=== PATIENT | female | born 1985 | race Two or more races ===

== ENCOUNTER 2018-02-06 14:51 | Inpatient (IN) | payer SELFPAY ==
[2018-02-06] MEDS ORDERED: MISOPROSTOL 200 MCG TAB PR (18:00)
[2018-02-06] MEDS ORDERED: LIDOCAINE 1% (MPF) 30 ML INJ INJ (18:00)
[2018-02-06] MEDS ORDERED: METHYLERGONOVINE 0.2 MG INJ IM (18:00)
[2018-02-06] MEDS ORDERED: OXYTOCIN 30 UNITS/LR 500 ML IV ×2 (18:00)
[2018-02-06] MEDS ORDERED: CARBOPROST 250 MCG INJ IM (18:00)
[2018-02-06] MEDS ORDERED: BUTORPHANOL 2 MG INJ IV (18:00)
[2018-02-06] MEDS ORDERED: IBUPROFEN 600 MG TAB PO (18:00)
[2018-02-06 19:58] LABS: ADD MAN DIFF? NO
[2018-02-06] MEDS: LACTATED RINGER'S 1,000 ML IV* (19:59)
[2018-02-06 20:01] LABS: WHITE BLOOD COUNT 9.4 10^3/ul (4.8-10.8)
[2018-02-06 20:01] LABS: BASOPHILS % 0.1 % (0.0-2.0); EOSINOPHILS % 0.2 % (0.0-7.0); HEMATOCRIT 38.1 % (37.0-47.0); HEMOGLOBIN 12.7 g/dl (12.0-16.0); LYMPHOCYTES # 1.4 10^3/ul (0.8-2.9); LYMPHOCYTES % 15.1 % (15.0-51.0); MEAN CORPUSCULAR HEMOGLOBIN 31.1 pg (29.0-33.0); MEAN CORPUSCULAR HGB CONC 33.3 g/dl (32.0-37.0); MEAN CORPUSCULAR VOLUME 93.4 fl (82.0-101.0); MEAN PLATELET VOLUME 10.3 fl (7.4-10.4); MONOCYTE # 0.7 10^3/ul (0.3-0.9); NEUTROPHIL # 7.3 10^3/ul (1.6-7.5); NEUTROPHILS % 77.2 % (39.0-77.0); PLATELET COUNT 160 10^3/UL (140-415); RED BLOOD COUNT 4.08 10^6/ul (4.20-5.40); RED CELL DISTRIBUTION WIDTH 13.2 % (11.5-14.5)
[2018-02-06] MEDS: AMPICILLIN 2 GM/NS (PMX) 100 ML IV (20:18)
[2018-02-06 20:19] LABS: PT RATIO 1.1
[2018-02-06 20:20] LABS: PARTIAL THROMBOPLASTIN TIME 26.4 Sec (25.0-35.0)
[2018-02-06 20:58] LABS: PROTIME 13.4 Sec (11.9-14.9)
[2018-02-06 20:59] LABS: INR 1.01
[2018-02-06] MEDS: LACTATED RINGER'S 1,000 ML IV (21:06)
[2018-02-06] MEDS ORDERED: FENTAnyl 2MCG/ML-ROPIV 0.2% 100 ML (21:07)
[2018-02-06 21:35] LABS: HEPATITIS B SURFACE ANTIGEN NEGATIVE (NEGATIVE)
[2018-02-06] MEDS ORDERED: ONDANSETRON 4 MG INJ IV (22:00)
[2018-02-06] MEDS ORDERED: DIPHENHYDRAMINE 50 MG INJ IV (22:00)
[2018-02-06] MEDS ORDERED: NALOXONE (0.4 MG/ML) INJ IV (22:00)
[2018-02-06] MEDS ORDERED: AMPICILLIN 1 GM/NS (PMX) 50 ML IV (22:00)
[2018-02-07] MEDS: DEXTROSE 5%-LR 1,000 ML IV (00:03)
[2018-02-07] MEDS: AMPICILLIN 1 GM/NS (PMX) 50 ML IV ×3 (00:03→07:11)
[2018-02-07] MEDS ORDERED: OXYTOCIN 30 UNITS/LR 500 ML IV ×2 (03:00→09:30)
[2018-02-07] MEDS: LACTATED RINGER'S 1,000 ML IV* (04:01)
[2018-02-07] MEDS: FENTAnyl 2MCG/ML-ROPIV 0.2% 100 ML BAG EPI (05:57)
[2018-02-07] MEDS: MINERAL OIL LIGHT 10 ML VIAL TOP (07:30)
[2018-02-07] MEDS: OXYTOCIN 30 UNITS/LR 500 ML IV ×3 (08:39→16:30)
[2018-02-07] MEDS ORDERED: LACTATED RINGER'S 1,000 ML IV* (09:04)
[2018-02-07] MEDS ORDERED: CARBOPROST 250 MCG INJ IM (09:30)
[2018-02-07] MEDS ORDERED: HYDROCODONE/APAP (5/325) TAB PO (09:30)
[2018-02-07] MEDS ORDERED: METHYLERGONOVINE 0.2 MG INJ IM (09:30)
[2018-02-07] MEDS ORDERED: MISOPROSTOL 200 MCG TAB PR (09:30)
[2018-02-07] MEDS: BENZOCAINE 20% 56 ML SPRAY TOP (13:59)
[2018-02-07] MEDS: LANOLIN 7 GM TUBE TOP (13:59)
[2018-02-07] MEDS: IBUPROFEN 600 MG TAB PO ×2 (13:59→18:14)
[2018-02-07 18:22] LABS: RAPID PLASMA REAGIN NONREACTIVE (NR)
[2018-02-08] MEDS: IBUPROFEN 600 MG TAB PO ×4 (00:39→17:30)
[2018-02-08 08:27] LABS: ADD MAN DIFF? NO
[2018-02-08 08:34] LABS: BASOPHILS % 0.2 % (0.0-2.0); EOSINOPHILS # 0.1 10^3/ul (0.0-0.5); EOSINOPHILS % 1.1 % (0.0-7.0); HEMATOCRIT 32.4 % (37.0-47.0); LYMPHOCYTES # 1.9 10^3/ul (0.8-2.9); LYMPHOCYTES % 16.4 % (15.0-51.0); MEAN CORPUSCULAR HEMOGLOBIN 32.3 pg (29.0-33.0); MEAN PLATELET VOLUME 10.1 fl (7.4-10.4); MONOCYTE # 0.8 10^3/ul (0.3-0.9); MONOCYTES % 7.3 % (0.0-11.0); NEUTROPHIL # 8.4 10^3/ul (1.6-7.5); NEUTROPHILS % 74.6 % (39.0-77.0); PLATELET COUNT 125 10^3/UL (140-415); RED BLOOD COUNT 3.41 10^6/ul (4.20-5.40); RED CELL DISTRIBUTION WIDTH 13.2 % (11.5-14.5)
[2018-02-08 08:34] LABS: WHITE BLOOD COUNT 11.3 10^3/ul (4.8-10.8)
[2018-02-09] MEDS: IBUPROFEN 600 MG TAB PO ×3 (00:16→11:34)
[2018-02-09] MEDS: DIPHTH/TET/ACEL PERTUSS (ADULT) 0.5 ML VIAL IM* (09:00)
== END 2018-02-09 17:30 | disposition home or self-care (01) | DRG 775 ==
LOC: OBT 14:51 → L-D 14:51 → PP1 02-07 12:34 → OBT 17:40 → L-D 17:30
PROVIDERS: Obstetrics & Gynecology
PROC: 10E0XZZ Delivery of Products of Conception, External Approach (ICD-10-PCS; principal; 2018-02-06)
PROC: 3E033VJ Introduction of Other Hormone into Peripheral Vein, Percutaneous Approach (ICD-10-PCS; 2018-02-06)
DX: O71.4 Obstetric high vaginal laceration alone (principal); Z3A.39 39 weeks gestation of pregnancy; Z37.0 Single live birth
CPT/HCPCS: 62319; 85025; 85610; 85730; 86592; 86850; 86900; 86901; 87340; 99464